=== PATIENT | female | born 1950 | race Caucasian/White ===

== ENCOUNTER → 2016-12-27 | Outpatient (CLI) | payer OTHER ==
[~2016-12-27] MED LIST: AMB10 PO; BNT10 PO; CITRACAL PO; DICL-201 PO; MULT-506 PO; OMEG10007 PO; OXYC-57 PO; PANT40TA PO; PROBIOTIC PO; SERT50TA PO; [UNRECOGNIZED DRUG - OTHER] PO; [UNRECOGNIZED DRUG - OTHER] PO
[2016-12-27 16:25] LABS: MANUAL MICROSCOPIC REQUIRED? YES; URINE APPEARANCE SL CLOUDY (CLEAR); URINE BILIRUBIN NEG (NEG); URINE COLOR YELLOW; URINE NITRITE POS (NEG); URINE PH 5.5 (4.5-7.5); URINE SPECIFIC GRAVITY >= 1.030 (1.000-1.030); UROBILINOGEN NEG (NEG)
[2016-12-27 16:45] LABS: REVIEW REQ? NO
[2016-12-27 16:47] LABS: URINE BACTERIA 1+ (NEG); URINE WBC >30 /hpf (0-5)
== END | disposition home or self-care (01) ==
LOC: C.LABBC 15:15
PROVIDERS: ATTEND Physician Assistant
DX: N39.0 Urinary tract infection, site not specified (principal)

== ENCOUNTER → 2017-03-27 | Outpatient (CLI) | payer OTHER ==
[2017-03-27 17:01] LABS: ALT/SGPT 31 U/L (12-78); BLOOD UREA NITROGEN 19 mg/dl (7-18); BUN/CREATININE RATIO 20.5 (10-20); CALCIUM 9.3 mg/dl (8.5-10.1); CARBON DIOXIDE 24 mmol/L (21-32); CHLORIDE 108 mmol/L (98-107); CHOLESTEROL 189 mg/dl (0-200); CREATININE 0.91 mg/dl (0.60-1.20); GLUCOSE 123 mg/dl (70-99); POTASSIUM 3.9 mmol/L (3.5-5.1); SODIUM 142 mmol/L (136-145)
[2017-03-27 17:11] LABS: ALB/GLOB RATIO 1.2 (0.9-2); ALKALINE PHOSPHATASE 58 U/L (45-117); AST/SGOT 20 U/L (15-37); CHOLESTEROL/HDL RATIO 3.4; HDL CHOLESTEROL 56 mg/dl; LDL CHOLESTEROL CALCULATED 62 mg/dl; TRIGLYCERIDES 354 mg/dl (0-150); VERY LOW DENSITY LIPOPROT CALC 71 mg/dl
== END | disposition home or self-care (01) ==
LOC: C.LABBC 14:13
PROVIDERS: ATTEND Physician Assistant
DX: E78.1 Pure hyperglyceridemia (principal)

== ENCOUNTER → 2017-05-03 | Outpatient (CLI) | payer OTHER ==
[~2017-05-03] MED LIST changes: -DICL-201 PO; +OPTIRAY 320 IV PRN; -OXYC-57 PO; -[UNRECOGNIZED DRUG - OTHER] PO; -[UNRECOGNIZED DRUG - OTHER] PO
[2017-05-03 15:12] LABS: BASO % 0.2 %; BASO ABS # 0.01 K/uL (0-0.2); COMPLETE YES; EOS % 0.6 %; HEMATOCRIT 45.8 % (37-47); IG% 0.3 %; LYMPH ABS # 1.79 K/uL (1.2-3.4); MEAN CELL VOLUME 87.1 fL (80-100); MEAN CORPUSCULAR HGB CONC 34.5 g/dl (32-36); MEAN PLATELET VOLUME 10.5 fL (7.4-10.4); NEUT % 65.9 %; PLATELET COUNT 187 K/uL (130-400); RED BLOOD COUNT 5.26 M/uL (4.2-5.4); WHITE BLOOD COUNT 6.64 K/uL (4.8-10.8)
[2017-05-03 15:44] LABS: ALT/SGPT 28 U/L (12-78); AMYLASE 48 U/L (25-115); AST/SGOT 16 U/L (15-37); BLOOD UREA NITROGEN 18 mg/dl (7-18); BUN/CREATININE RATIO 21.2 (10-20); CALCIUM 9.4 mg/dl (8.5-10.1); CARBON DIOXIDE 27 mmol/L (21-32); CHLORIDE 106 mmol/L (98-107); CREATININE 0.86 mg/dl (0.60-1.20); GLUCOSE 96 mg/dl (70-99); SODIUM 140 mmol/L (136-145)
[2017-05-03 15:50] LABS: ALB/GLOB RATIO 1.2 (0.9-2); ALKALINE PHOSPHATASE 67 U/L (45-117)
--- NOTE | 2017-05-03 18:29 | DIAGNOSTIC IMAGING REPORT ---
ABDOMEN AND PELVIS CT WITH IV AND ORAL CONTRAST CT DOSE: 254.16 mGy.cm HISTORY: Generalized abdominal pain. TECHNIQUE: Multiaxial CT images of the abdomen and pelvis were performed following the use of intravenous and oral contrast. A dose lowering technique was utilized adhering to the principles of ALARA. COMPARISON STUDY: Abdomen and pelvis CT 05/07/2009. FINDINGS: The right lung base is clear. There are 2 subpleural subcentimeter nodular densities within the left lower lobe and lingula with the largest measuring 4 mm. These are likely present on the prior study but are only partially visualized. Given the long-term stability these are considered to be benign. No pneumoperitoneum. No pneumatosis. No fractures within the visualized osseous structures. Cholecystectomy. No hepatic or splenic masses. The pancreas and adrenal glands are unremarkable. Stable mild intrahepatic bile duct dilatation. This is likely due to the patient's postcholecystectomy state. No retroperitoneal lymphadenopathy. 6 mm hypodense lesion within the upper pole the right kidney is too small to characterize. There is a right extrarenal pelvis, unchanged. No hydronephrosis. Stable appearance to the left kidney. Hysterectomy. Questionable mild bladder wall thickening. Colonic diverticulosis. No evidence for diverticulitis. Mild thickening of the sigmoid colon is likely due to muscular hypertrophy. No evidence for bowel obstruction. The appendix appears surgically absent. IMPRESSION: 1. No definite bowel wall thickening or obstruction. 2. Colonic diverticulosis. 3. Prior appendectomy, cholecystectomy, and hysterectomy. 4. Stable mild intrahepatic bile duct dilatation. 5. Questionable mild bladder wall thickening. Recommend correlation with urinalysis. Electronically signed by: Jean-Paul Caba M.D. 05/03/2017 6:27 PM Dictated Date/Time: 05/03/2017 6:20 PM
[2017-05-04 13:43] LABS: URINE APPEARANCE CLEAR (CLEAR); URINE COLOR DK YELLOW; URINE NITRITE NEG (NEG); URINE SPECIFIC GRAVITY 1.036 (1.000-1.030); UROBILINOGEN NEG (NEG)
[2017-05-04 13:51] LABS: MANUAL MICROSCOPIC REQUIRED? NO; REVIEW REQ? NO; URINE BILIRUBIN NEG (NEG)
== END | disposition home or self-care (01) ==
LOC: C.CTS 14:50
PROVIDERS: ATTEND Internal Medicine
DX: R10.9 Unspecified abdominal pain (principal); K57.30 Diverticulosis of large intestine without perforation or abscess without bleeding

== ENCOUNTER → 2017-06-08 | Outpatient (CLI) | payer OTHER ==
[~2017-06-08] MED LIST changes: -OPTIRAY 320 IV PRN
--- NOTE | 2017-06-09 07:42 | MAMMOGRAPHY REPORT ---
BILATERAL DIGITAL SCREENING MAMMOGRAM TOMOSYNTHESIS WITH CAD: 06/08/2017 TECHNIQUE: Breast tomosynthesis in addition to standard 2D mammography was performed. Current study was also evaluated with a Computer Aided Detection (CAD) system. COMPARISON: Comparison is made to exams dated: 05/31/2016 mammogram, 03/31/2015 mammogram, 11/19/2013 ma mmogram, 10/22/2012 mammogram, 10/19/2011 mammogram, and 10/11/2010 mammogram - [facility] er. BREAST COMPOSITION: The tissue of both breasts is heterogeneously dense, which may obscure small mas ses. FINDINGS: There are possible grouped faint calcifications within the left upper outer quadrant poste riorly, for which spot magnification views are recommended for further evaluation. 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 The remainder of both breasts are stable compared to prior exams, without suspicious masses, calcific ations, or areas of architectural distortion noted. 2 clusters of calcifications in the right upper outer quadrant have coarsened compared to prior exams and are therefore benign and likely represent d egenerating fibroadenomas. IMPRESSION: ACR BI-RADS CATEGORY 0: INCOMPLETE EVALUATION: NEED ADDITIONAL IMAGING EVALUATION Left breast calcifications, for which additional imaging evaluation is recommended. The patient will be called to schedule an appointment. Approximately 10% of breast cancers are not detected with mammography. A negative mammographic report should not delay biopsy if a clinically suggestive mass is present. Irina Chambers M.D. ah/:06/08/2017 17:11:30 Vehicle Body Sander: Starla PINO(Zoraida)(M), [facility] letter sent: Addl Imaging 0 BI-RADS Code: ACR BI-RADS Category 0: Incomplete Evaluation: Need Additional Imaging Evaluation
== END | disposition home or self-care (01) ==
LOC: C.MAMM 12:00
PROVIDERS: ATTEND Internal Medicine
DX: Z12.31 Encounter for screening mammogram for malignant neoplasm of breast (principal); R07.81 Pleurodynia; R92.1 Mammographic calcification found on diagnostic imaging of breast

== ENCOUNTER → 2017-06-21 | Outpatient (CLI) | payer OTHER ==
--- NOTE | 2017-06-21 13:17 | MAMMOGRAPHY REPORT ---
UNILATERAL LEFT DIGITAL DIAGNOSTIC MAMMOGRAM: 06/21/2017 CLINICAL HISTORY: Callback from screening for left breast calcifications. TECHNIQUE: Spot magnification left CC and ML views were obtained. COMPARISON: Comparison is made to exams dated: 05/31/2016 mammogram, 03/31/2015 mammogram, 10/19/2011 ma mmogram, and 10/11/2010 mammogram - [facility]. BREAST COMPOSITION: The tissue of the left breast is heterogeneously dense, which may obscure small masses. FINDINGS: Spot magnification views of the left breast demonstrate a 4 mm cluster of punctate but sli ghtly heterogeneous calcifications in the left 12:00 breast middle depth. While this cluster could r epresent a degenerating fibroadenoma as seen in the right breast, it is indeterminate and stereotacti c biopsy is recommended for further evaluation. Spot magnification views also demonstrate faint grouped calcifications in the left upper outer quadra nt posteriorly, which are somewhat linear in distribution. The calcifications are faint and ill-defi yenni and therefore difficult to measure but the group measures at least 16 x 16 mm. The calcification s are indeterminate and stereotactic biopsy is recommended for further evaluation. IMPRESSION: ACR BI-RADS CATEGORY 4: SUSPICIOUS Two groups of calcifications in the left breast at 12:00 and upper outer quadrant are indeterminate a nd stereotactic biopsy x2 is recommended for further evaluation. A phone call was made to the physician's office to confirm faxed results were received. The patient has been verbally notified of the results. She tentatively scheduled the biopsies before leaving the department. Approximately 10% of breast cancers are not detected with mammography. A negative mammographic report should not delay biopsy if a clinically suggestive mass is present. Irina Chambers M.D. ah/:06/21/2017 08:56:51 Plant Technician/Control Room Operator: Margaret KAUR)(Ke), [facility] letter sent: Abnormal 4/5 BI-RADS Code: ACR BI-RADS Category 4: Suspicious
== END | disposition home or self-care (01) ==
LOC: C.MAMM 08:20
PROVIDERS: ATTEND Internal Medicine
DX: R92.1 Mammographic calcification found on diagnostic imaging of breast (principal)

== ENCOUNTER → 2017-06-29 | Outpatient (CLI) | payer OTHER ==
--- NOTE | 2017-06-29 10:21 | Discharge Instructions ---
Discharge Instructions Procedure Procedure Date: Jun 29, 2017. Reason for visit: Left Calcs X2. Discharge Discharge Date: Jun 29, 2017. Discharge Diagnosis: status post breast biopsy Instructions Activity Recommendations: Additional Limitations (see below) Return to School/Work: no limitations Recommended Home Diet: No Limitations Provider Instructions: ACTIVITY RECOMMENDATIONS: * No lifting, pushing, pulling or exercising the affected side for three days. RETURN TO SCHOOL/WORK: * You may return to work/school after the procedure, but do not perform any strenuous activities for 24 to 48 hours. MEDICATIONS: * Tylenol (two 325 mg) every four to six hours if needed for mild pain (if not allergic to Tylenol). DIET: * Resume previous diet. SPECIAL CARE INSTRUCTIONS: * Keep biopsy site dry for 24 hours. May shower after 24 hours, but do not soak (bathe) incision. * May remove Tegaderm (plastic patch) tomorrow AFTER showering. * Leave the steri-strips on for one week. Allow the steri-strips to fall off by themselves. If not off after one week, you may remove them. You may place a Bandaid crosswise over the strips, if desired. * Apply ice 10 minutes on and 10 minutes off as needed. * Wear a bra at bedtime to sleep more comfortably for 2-3 days. * Your referring physician should have the results after approximately 5 to 7 business days. * Call for unusual bleeding, fever, drainage, etc or if you have any questions call during normal business hours or after hours call Dr Chambers, . FOLLOW UP VISIT: Follow-up with Referring Physician as scheduled. Allergies Coded Allergies: Diazepam (Verified Allergy, Severe, LOW B/P; "IV VALIUM CAUSED ANAPHYLACTIC SHOCK", 05/14/10) Clary Dowd Recommendations: Call your doctor if: * Temperature above 101 degrees * Pain not relieved by pain medicine ordered * There is increased drainage or redness from any incision * You have any unanswered questions or concerns. Your Doctors Instructions noted above were prepared by provider Irina Chambers. Patient Signature Section: Patient Instructions Signature Page Avril Macario Patient (or Guardian) Signature/Date: I have read and understand the instructions given to me by my caregivers. Caregiver/RN/Doctor Signature/Date: The above-named patient and/or guardian has received patient instructions on this date. + Original Patient Signature Page (only) stays with chart. Please make copy for patient.
--- NOTE | 2017-06-29 13:55 | MAMMOGRAPHY REPORT ---
STEREOTACTIC GUIDED BIOPSY LEFT BREAST: 06/29/2017 CLINICAL HISTORY: Indeterminate calcifications in the left 12:00 breast. PATIENT CONSENT: The procedure, risks, benefits, and alternatives of stereotactic biopsy with clip pl acement were discussed with the patient, and verbal and written consent was obtained. A timeout was performed immediately prior to the procedure. PROCEDURE DESCRIPTION: With stereotactic guidance, aseptic technique, and lidocaine as a local anesth etic (1% lidocaine to anesthetize the skin and 1% lidocaine with epinephrine to anesthetize the deepe r tissues), the calcifications of concern in the left 12:00 breast (labelled site "B") were sampled m ultiple times with a 9-gauge vacuum-assisted biopsy needle ([employer]). The path of approach was l ateral. The specimen radiograph demonstrates calcifications to be present in the samples. A metalli c marker clip was placed at the biopsy site. This was confirmed on postprocedure mammograms. Direct pressure was applied at the biopsy site and hemostasis was readily achieved. The patient tolerated the procedure without complication. She was given wound care instructions. COMPARISON: Comparison is made to exams dated: 06/29/2017 stereotactic biopsy, 06/21/2017 mammogram, 06/08/2017 mammogram, 05/31/2016 mammogram, 03/31/2015 mammogram, and 11/19/2013 mammogram - [facility]. IMPRESSION: STEREOTACTIC GUIDED BIOPSY Stereotactic biopsy of indeterminate calcifications in the left 12:00 breast, with clip placement. T he patient will receive pathology results from her referring provider. Irina Chambers M.D. ah/:06/29/2017 10:24:09 Biofuels Plant Manager: Starla PINO(Zoraida)(M), [facility]
--- NOTE | 2017-06-29 13:55 | MAMMOGRAPHY REPORT ---
UNILATERAL LEFT DIGITAL DIAGNOSTIC MAMMOGRAM: 06/29/2017 CLINICAL HISTORY: Status post left breast stereotactic biopsy 2. TECHNIQUE: Postprocedural left CC and LM views were obtained. COMPARISON: Comparison is made to exams dated: 06/29/2017 stereotactic biopsy, 06/21/2017 mammogram, 06/08/2017 mammogram, 05/31/2016 mammogram, 03/31/2015 mammogram, and 11/19/2013 mammogram - [facility]. BREAST COMPOSITION: The tissue of the left breast is heterogeneously dense, which may obscure small masses. FINDINGS: A new T-shaped biopsy marker clip is seen in the left upper outer quadrant status post fiorella reotactic biopsy of left upper outer quadrant calcifications. There is minimal lateral migration of the biopsy marker clip from the biopsy site by approximately 1.7 cm. A dumbbell shaped biopsy marker clip is seen at the site of the biopsied calcifications in the left 12:00 breast. No significant po stbiopsy hematoma is seen. IMPRESSION: POST PROCEDURE IMAGING FOR MARKER PLACEMENT New biopsy marker clips status post left breast stereotactic biopsies 2. Pathology results are pend ing. Approximately 10% of breast cancers are not detected with mammography. A negative mammographic report should not delay biopsy if a clinically suggestive mass is present. Irina Chambers M.D. ah/:06/29/2017 10:46:21 Shot Lighter: Starla PINO(Zoraida)(M), [facility] BI-RADS Code: Post Procedure Imaging For Marker Placement
--- NOTE | 2017-06-29 13:55 | MAMMOGRAPHY REPORT ---
STEREOTACTIC GUIDED BIOPSY LEFT BREAST: 06/29/2017 CLINICAL HISTORY: Indeterminate calcifications in the left upper outer quadrant. PATIENT CONSENT: The procedure, risks, benefits, and alternatives of stereotactic biopsy with clip pl acement were discussed with the patient, and verbal and written consent was obtained. A timeout was performed immediately prior to the procedure. PROCEDURE DESCRIPTION: With stereotactic guidance, aseptic technique, and lidocaine as a local anesth etic (1% lidocaine to anesthetize the skin and 1% lidocaine with epinephrine to anesthetize the deepe r tissues), the calcifications of concern in the left upper outer quadrant posteriorly (labeled site "A") were sampled multiple times with a 9-gauge vacuum-assisted biopsy needle ([employer]). The pat h of approach was lateral. The specimen radiograph demonstrates calcifications to be present in the samples. A metallic marker clip was placed at the biopsy site. This was confirmed on postprocedure mammograms. Direct pressure was applied at the biopsy site and hemostasis was readily achieved. The patient tolerated the procedure without complication. She was given wound care instructions. COMPARISON: Comparison is made to exams dated: 06/21/2017 mammogram, 06/08/2017 mammogram, 05/31/2016 m ammogram, and 03/31/2015 mammogram - [facility]. IMPRESSION: STEREOTACTIC GUIDED BIOPSY Stereotactic biopsy of indeterminate calcifications in the left upper outer quadrant, with clip place ment. The patient will receive pathology results from her referring provider. Irina Chambers M.D. ah/:06/29/2017 10:23:04 Network Operations Manager: Starla PINO(Zoraida)(Ke), [facility]
== END | disposition home or self-care (01) ==
LOC: C.MAMM 09:21
PROVIDERS: ATTEND Internal Medicine
DX: R93.0 Abnormal findings on diagnostic imaging of skull and head, not elsewhere classified (principal); D24.2 Benign neoplasm of left breast

== ENCOUNTER → 2017-12-27 | Outpatient (CLI) | payer OTHER | END | disposition home or self-care (01) | LOC: C.PATHSPEC 16:33 | PROVIDERS: ATTEND Physician Assistant | DX: L82.0 Inflamed seborrheic keratosis (principal) ==

== ENCOUNTER 2020-03-28 10:34 | Inpatient (IN) ==
[2020-03-28] MEDS ORDERED: MoRPHine SULFATE 4 MG/ML 1 ML CARP\\VIAL IV STA ×2 (11:23→12:08)
[2020-03-28] MEDS ORDERED: ONDANSETRON INJ 2 MG/ML 2 ML VIAL IV STA (11:23)
[2020-03-28] MEDS ORDERED: SODIUM CHLORIDE 0.9% 1000ML 1,000 ML IV SCH ×2 (11:24→11:30)
--- NOTE | 2020-03-28 11:34 | Emergency Department Note ---
History of Present Illness General Chief complaint: Abdominal Pain Stated complaint: DIVERTICULITIS CONFIRMED LAST WEEK - SWOLLEN Time Seen by Provider: 03/28/20 11:05 History of Present Illness Maximum Pain Intensity: 8 Patient is a 70-year-old female who presents the emergency department accompanied by her for evaluation of abdominal pain and bloating that started yesterday. She was seen at her primary care provider's office on 03/19 for abdominal pain and had a CT scan that was consistent with diverticulitis. She was treated with Augmentin. She reports that she is on the last day of the Augmentin. She started to feel better after being on the antibiotic for 2 days, and felt well this week until yesterday, when she woke up and again noted malaise and lower abdominal discomfort and bloating. Her symptoms worsened as the day went on. She tried holding a heating pad to the abdomen, but did not try anything for discomfort by mouth. She has been following a clear liquid diet. She had a normal bowel movement yesterday afternoon, then had some small loose bowel movements throughout the day without blood or melena. She does note increased nausea as well without vomiting. No fevers. She denies any urinary symptoms but has noted some vaginal itching and suspects that she may be developing a yeast infection secondary to the Augmentin. She does also have a history of IBS. She had a colonoscopy about 18 months ago which showed diverticular disease. She currently rates her discomfort a 8/10, she states that it is located in the left lower quadrant and radiates to the suprapubic region. It is sharp and constant in nature and worse with movement. Home Medications Home Medications Medication Instructions Recorded Confirmed Type Saccharomyces boulardii 250 mg 250 mg PO QAM cap 03/14/19 03/28/20 History capsule zolpidem 5 mg tablet 5 mg PO HS PRN #30 tab 03/05/20 03/28/20 Rx amoxicillin 875 mg-potassium 1 tab PO BID #20 tab 03/19/20 03/28/20 Rx clavulanate 125 mg tablet pantoprazole 40 mg PO QAM 03/28/20 03/28/20 History sertraline 100 mg PO QAM 03/28/20 03/28/20 History Allergies Allergy/AdvReac Type Severity Reaction Status Date / Time diazepam Allergy Severe LOW B/P; Verified 03/28/20 12:01 "IV VALIUM CAUSED ANAPHYLACTIC SHOCK" alendronate sodium AdvReac Verified 03/28/20 12:01 [From Fosamax] azithromycin [From Zithromax] AdvReac DIARRHEA Verified 03/28/20 12:01 Past Med/Surg History Medical History Abdominal pain (Resolved) Abnormal mammography s/p lumpectomy, s/p stereotactic biopsy 06/29/2017. Left Upper outer quadrant - Fibroadenomatoid change with associated microcalcification. Left 12 o'clock bx - Fibroadenomatoid change with associated microcalcification. Age related osteoporosis Anorexia Chronic reflux esophagitis (Chronic) Current smoker Depression (Chronic) Diverticulosis of colon Elevated blood pressure reading with diagnosis of hypertension Elevated blood pressure reading without diagnosis of hypertension Herpes simplex Hypertriglyceridemia Irritable bowel syndrome (Chronic) Mineral deficiency Nausea Neck pain Osteoarthritis (Chronic) Osteoporosis (Chronic) Osteoporosis with fracture Postmenopausal osteoporosis Rhinorrhea Solitary pulmonary nodule Symptoms of upper respiratory infection (URI) Tobacco use (Chronic) Vitamin D deficiency (Chronic) Weight loss Surgical History H/O: hysterectomy History of appendectomy (Resolved) History of cholecystectomy (Resolved 11/20/18) History of colonoscopy Tubular adenoma in cecum. Hyperplastic polyp in rectum. F/U 5 years. History of esophagogastroduodenoscopy (EGD) (Resolved 11/20/18) No significant path on duodenal bx. Gastric antral mucosa with changes consistent with mild reactive grastropathy. Negative for H. pylori. History of lumpectomy (Resolved) History of partial nephrectomy (Resolved) No pathology reports in [employer]. History of tonsillectomy and adenoidectomy (Resolved) Family History (Updated 03/26/20 @ 10:43 by Lissa Sena) Mother Arthritis Breast cancer Father Heart disease Hypertension Parkinson disease Uncle Colon cancer Grandfather Colon cancer Grandmother Ovarian cancer Brother Diabetes Denies family history of Prostate cancer Myocardial infarction Lung cancer Stroke Social History Preferred Language: Turkish marital status: Current Living Situation: Spouse current occupational status: retired Feels Safe at Home: Yes Smoking Status: Current every day smoker Tobacco Type: cigarettes ; packs per day: 0.25 ; Second Hand Exposure: No ; Hx Alcohol Use: Yes Alcohol type: wine Alcohol Intake Frequency: Weekly Alcohol Intake Frequency Comment: 4 times per week Hx Substance Use: Yes (zolpidem) substance use type: prescription drug Childhood Exposure to Second-Hand Smoke: No caffeine: Yes Dental Care, Regularly: Yes Physical Activity Frequency: 3-4 Times per Week Seatbelt Use: always Sunscreen Use: No Review of Systems A total of 10 systems reviewed and were otherwise negative Physical Exam Vital Signs Vital Signs - 24 hr 03/28/20 10:42 03/28/20 11:42 03/28/20 11:52 Temperature 37.2 C Temperature Source Oral Pulse Rate 80 69 70 Pulse Rate [Right Finger] Respiratory Rate 18 15 12 Respiratory Effort / Characteristics Non-Labored Respiratory Depth Normal Respiratory Pattern Regular Blood Pressure 169/90 H 175/81 H Blood Pressure [Left Arm] Blood Pressure Mean 116 97 Blood Pressure Mean [Left Arm] Blood Pressure Position Sitting Pulse Oximetry 96 93 94 Oxygen Delivery Method Room Air Sepsis Recent Fever Within 48 Hours No Sepsis Action Taken by Nursing No Action Required 03/28/20 12:00 03/28/20 12:38 03/28/20 13:08 Temperature Temperature Source Pulse Rate 67 Pulse Rate [Right Finger] 88 89 Respiratory Rate 12 19 19 Respiratory Effort / Characteristics Respiratory Depth Respiratory Pattern Blood Pressure Blood Pressure [Left Arm] 190/100 H 180/94 H Blood Pressure Mean Blood Pressure Mean [Left Arm] 130 122 Blood Pressure Position Pulse Oximetry 95 95 93 Oxygen Delivery Method Sepsis Recent Fever Within 48 Hours Sepsis Action Taken by Nursing CONSTITUTIONAL: Patient is a well-appearing 70-year-old female who is awake and alert and in no acute distress. She is nontoxic in appearance. Vital signs are stable. EYES: Pupils equal, round, reactive to light and accommodation. EOMs intact without nystagmus. Sclera are anicteric. ENT: Tympanic membranes intact, with normal landmarks. External canals are clear. Oral and nasopharynx are clear. Mucous membranes are moist, no lesions, tongue and gums appear normal. CARDIOVASCULAR: Regular rate and rhythm, with normal S1 and S2, no murmur or gallop or rub is heard. No carotid bruits auscultated. No JVD. Peripheral pulses easily palpable. RESPIRATORY: Breath sounds equal and clear to auscultation without wheezes, rales, or rhonchi heard. Full and equal chest expansion without accessory muscle use or retractions. ABDOMEN: Bowel sounds are present, slightly hyperactive in the lower quadrants. Abdomen is soft, mildly distended, tender to percussion in the lower abdomen in the suprapubic region and in the left lower quadrant. She is tender to palpation of the left lower quadrant, with voluntary guarding. INTEGUMENTARY: No lesions or rash, normal skin turgor. LYMPH: No lymphadenopathy. Course Course The patient was seen and assessed as above. Old records were reviewed, including her recent primary care visits and her outpatient CT scan. She presents to the emergency department for evaluation of return of the left lower quadrant pain that prompted her to go to the primary care provider 10 days ago when she was diagnosed with diverticulitis. She is due to finish her Augmentin today. On exam she is fairly tender in the left lower quadrant. IV lock was initiated and laboratory studies were collected. She was hydrated with a liter bolus of normal saline solution and medicated with Zofran 4 mg IV and morphine 4 mg IV. CBC with differential, CMP and urinalysis were ordered. CT scan of the abdomen and pelvis with IV contrast was obtained to evaluate for any changes. Patient was reassessed, roughly 45 minutes after she had received her medications, she was feeling improved, but still had some ongoing discomfort and was agreeable to additional medication for pain. She was given additional morphine 4 mg IV. Laboratory studies noted a normal white count 9700 left shift and bandemia noted. H&H is high 17.3 and 49.2, possibly related to hemoconcentration. Electrolytes are within normal limits. Renal functions are normal. Urine microscopy is indicative of contamination with greater than 30 epithelial cells. Otherwise trace ketones, trace leukocyte esterase scant RBCs and no bacteria noted. Patient was still uncomfortable when she returned from CT and was given morphine [address] scan of the abdomen pelvis with IV contrast notes diverticulitis involving the mid sigmoid colon have significantly improved compared to 03/19/2020, however there is wall thickening with pericolonic infiltration and fluid seen involving the distal descending and proximal sigmoid colon which is new from previous and consistent with a second focus of diverticulitis. No organized fluid collection is seen to indicate abscess. No bowel obstruction. No free air. Patient history, presentation, laboratory studies and diagnostic imaging studies were reviewed with attending physician who also independently evaluated the patient. Discussed IV antibiotic regimen with Dr. Vanessa Aquino, ED PharmD. Patient has a failed outpatient management on Augmentin. [facility] that secondary to the patient's age and comorbidities, Cipro/Flagyl would be poorly tolerated. Recommendation then was for IV ceftriaxone/IV Flagyl, could be transitioned to p.o. cefdinir and Flagyl at discharge. Patient was ordered Flagyl 500 mg IV and ceftriaxone 2 g IV. All laboratory and diagnostic imaging studies were reviewed with the patient and her significant other. Did recommend admission/observation for further care and management in the hospital due to her ongoing pain, as well as benefits secondary to the IV antibiotics and hydration. She was agreeable. Consultation was placed with the [facility] for further care and management. Patient was seen by Dr. Vazquez. Administered Medications Sodium Chloride (Nss 1000ml) 1,000 mls @ 250 mls/hr IV .Q4H JOYCE Stop: 04/27/20 11:29 Last Admin: 03/28/20 12:34 Dose: 250 mls/hr Documented by: [id number] Ioversol (Optiray 320 100ml) 94 ml IV ONCE PRN PRN Reason: Interaction Checking Stop: 04/01/20 12:26 Last Admin: 03/28/20 12:28 Dose: 94 ml Documented by: [id number] Discontinued Medications Sodium Chloride (Nss 1000ml) 1,000 mls @ 999 mls/hr IV .Q1H1M JOYCE Stop: 03/28/20 12:24 Last Infusion: 03/28/20 12:34 Dose: 0 mls/hr Documented by: [id number] Admin: 03/28/20 11:37 Dose: 999 mls/hr Documented by: [id number] Ceftriaxone Sodium (Rocephin) 2,000 mg in 70 mls @ 140 mls/hr IV NOW STA Stop: 03/28/20 13:45 Last Infusion: 03/28/20 13:54 Dose: 0 mls/hr Documented by: [id number] Admin: 03/28/20 13:28 Dose: 140 mls/hr Documented by: [id number] Morphine Sulfate (Morphine Sulfate) 4 mg IV NOW STA Stop: 03/28/20 11:24 Last Admin: 03/28/20 11:37 Dose: 4 mg Documented by: [id number] Morphine Sulfate (Morphine Sulfate) 4 mg IV NOW STA Stop: 03/28/20 12:09 Last Admin: 03/28/20 12:13 Dose: 4 mg Documented by: [id number] Morphine Sulfate (Morphine Sulfate) 6 mg IV NOW STA Stop: 03/28/20 12:46 Last Admin: 03/28/20 12:50 Dose: 6 mg Documented by: [id number] Ondansetron HCl (Zofran) 4 mg IV NOW STA Stop: 03/28/20 11:24 Last Admin: 03/28/20 11:37 Dose: 4 mg Documented by: [id number] Medical Decision Making Differential Diagnosis Differential diagnoses entertained included UTI, pyelonephritis, acute diverti culitis, bowel obstruction, perforation, abscess, mass or malignancy, infectious versus inflammatory colitis/enteritis, constipation, among others. Medical Records Attestation: I reviewed the patient's medical records. Home Medications Current Medication List: was personally reviewed by me Laboratory Data Attestation: I reviewed the patient's lab results. Result diagrams: 03/28/20 11:40 03/28/20 11:40 Lab Results 03/28/20 03/28/20 03/28/20 Range/Units 11:40 11:40 11:40 WBC 9.71 (4.8-10.8) K/uL RBC 5.65 H (4.2-5.4) M/uL Hgb 17.3 H (12.0-16.0) g/dL Hct 49.2 H (37-47) % MCV 87.1 (80-100) fL MCH 30.6 (25-34) pg MCHC 35.2 (32-36) g/dL RDW Std Deviation 39.1 (36.4-46.3) fL RDW Coeff of Umm 12.2 (11.5-14.5) % Plt Count 177 (130-400) K/uL MPV 10.9 H (7.4-10.4) fL Immature Gran % (Auto) 0.4 % Neut % (Auto) 80.8 % Lymph % (Auto) 13.5 % [place] % (Auto) 4.9 % Eos % (Auto) 0.3 % Baso % (Auto) 0.1 % Neut # (Auto) 7.84 H (1.4-6.5) K/uL Lymph # (Auto) 1.31 (1.2-3.4) K/uL [place] # (Auto) 0.48 (0.11-0.59) K/uL Eos # (Auto) 0.03 (0-0.5) K/uL Baso # (Auto) 0.01 (0-0.2) K/uL Immature Gran # (Auto) 0.04 H (0.00-0.02) K/uL Sodium 138 (136-145) mmol/L Potassium 4.2 (3.5-5.1) mmol/L Chloride 108 H (98-107) mmol/L Carbon Dioxide 26 (21-32) mmol/L Anion Gap 4.0 (3-11) BUN 15 (7-18) mg/dl Creatinine 0.78 (0.6-1.2) mg/dl Est Cr Clr Drug Dosing 54.7 ml/min Est GFR ( Amer) 88.6 Est GFR (Non-Af Amer) 76.5 BUN/Creatinine Ratio 19.4 (10-20) Glucose 105 H (70-99) mg/dl Calcium 9.5 (8.5-10.1) mg/dl Total Bilirubin 0.8 (0.2-1) mg/dl AST 20 (15-37) U/L ALT 28 (12-78) U/L Alkaline Phosphatase 83 (45-117) U/L Total Protein 7.7 (6.4-8.2) gm/dl Albumin 4.1 (3.4-5.0) gm/dl Globulin 3.6 (2.5-4.0) gm/dl Albumin/Globulin Ratio 1.1 (0.9-2) Urine Color Dark Yellow Urine Appearance Clear (Clear) Urine pH 5.0 (4.5-7.5) Ur Specific [place] 1.025 (1.000-1.030) Urine Protein Trace H (Negative) Urine Glucose (UA) Negative (Negative) Urine Ketones Trace H (Negative) Urine Blood Negative (Negative) Urine Nitrite Negative (Negative) Urine Bilirubin Negative (Negative) Urine Urobilinogen Negative (Negative) Ur Leukocyte Esterase Trace H (Negative) Urine WBC (Auto) 1-5 (0-5) /hpf Urine RBC (Auto) 5-10 H (0-4) /hpf U Hyaline Cast (Auto) 5-10 H (0-5) /lpf U Epithel Cells (Auto) >30 H (0-5) /lpf Urine Bacteria (Auto) Negative (Negative) Imaging Data Attestation: I personally reviewed and interpreted this imaging study as follows: Radiologist's Impression: CT SCAN OF THE ABDOMEN AND PELVIS WITH IV CONTRAST CLINICAL HISTORY: Generalized abdominal pain. Diverticulitis. COMPARISON STUDY: Abdominal CT dated 03/19/2020. TECHNIQUE: Following the IV administration of 94 cc of Optiray 320, CT scan of the abdomen and pelvis is performed from the lung bases to the proximal femora. Images are reviewed in the axial, sagittal, and coronal planes. IV contrast was administered without complication. A dose lowering technique was utilized adhering to the principles of ALARA. CT DOSE: 275.06 mGy.cm FINDINGS: Lung bases: The heart is normal in size and without pericardial effusion. 2 pl eural-based pulmonary nodules at the left lung base measuring up to 4 mm seen on images #52 and #59. A 5 mm pleural-based nodule in the left lower lobe is seen on image #5. These are unchanged from prior studies and of doubtful significance. The lung bases are otherwise clear. Liver: The contrast-enhanced liver is normal in size, contour, and attenuation. There is mild to moderate intrahepatic biliary ductal dilatation. The hepatic veins and portal veins are patent. Gallbladder: Surgically absent noting clips in the gallbladder fossa. Spleen: Normal in size and attenuation. Pancreas: Unremarkable. Adrenal glands: Unremarkable. Kidneys: The contrast enhanced kidneys are normal in size and without hydronephrosis. The kidneys enhance symmetrically. Scattered subcentimeter cortical hypodensities likely represent cysts but are too small for definitive characterization. Abdominal vasculature: The abdominal aorta is normal in course and caliber noting mild atherosclerotic calcification. Bowel: There is mild to moderate colonic diverticulosis. Findings of diverticulitis involving the mid sigmoid colon have significantly improved as compared to 03/19/2020. There is wall thickening with pericolonic infiltration and fluid seen involving the distal descending/proximal sigmoid colon which is new from previous and consistent with a second focus of diverticulitis. No organized fluid collection is seen to indicate abscess. No bowel obstruction is seen. The appendix is not identified and reported surgically absent. Peritoneum: There is no intraperitoneal free air or abdominal ascites. Lymphadenopathy: None. Pelvic viscera: The bladder is normal as visualized. The uterus is surgically absent. No adnexal lesion is seen. Numerous phleboliths are noted in the pelvis. Skeletal structures: The skeletal structures are osteopenic. Mild lumbosacral spondylosis is observed. No lytic or blastic lesions are seen. IMPRESSION: 1. There is moderate colonic diverticulosis. 2. Findings of acute diverticulitis involving the mid sigmoid colon seen on 03/19/2020 have almost completely resolved. 3. Findings of acute diverticulitis involving the distal descending/proximal sigmoid colon are new from 03/19/2020. 4. No intraperitoneal free air is seen and there is no organized fluid colle ction to suggest abscess. 5. Additional findings as above. Blood Pressure Blood Pressure Findings: Elevated blood pressure Blood Pressure Disposition: further management by hospitalist MDM Narrative See ED Course. Impression & Plan Acute diverticulitis Discharge Plan Visit Data Chief Complaint: Abdominal Pain Stated Complaint: DIVERTICULITIS CONFIRMED LAST WEEK - SWOLLEN ED Provider: Parth Bah ED Midlevel Provider: Jasmin Oviedo Discharge Problem: Acute diverticulitis Patient Disposition: Admitted As Inpatient Forms Stand Alone Forms: [facility] Prescriptions Prescriptions: No Action zolpidem 5 mg tablet 5 mg PO HS PRN (Reason: Sleep) Qty: 30 RF: 0 Saccharomyces boulardii 250 mg capsule 250 mg PO QAM RF: 0 amoxicillin-pot clavulanate [Augmentin] 875-125 mg tablet 1 tab PO BID Qty: 20 RF: 0 sertraline 100 mg tablet 100 mg PO QAM RF: 0 pantoprazole 40 mg tablet,delayed release (DR/EC) 40 mg PO QAM RF: 0 Referrals Referrals: Zach Thomas MD [Primary Care Provider] -
[2020-03-28 11:52] LABS: Basophils # (auto) 0.01 K/uL (0-0.2); Basophils % (auto) 0.1 %; Eosinophils # (auto) 0.03 K/uL (0-0.5); Eosinophils % (auto) 0.3 %; Hematocrit (blood only) 49.2 % (37-47); Hemoglobin 17.3 g/dL (12.0-16.0); Immature Granulocytes # (auto) 0.04 K/uL (0.00-0.02); Immature Granulocytes % (auto) 0.4 %; Lymphocytes # (auto) 1.31 K/uL (1.2-3.4); Lymphocytes % (auto) 13.5 %; Mean Corpuscular Hemoglobin 30.6 pg (25-34); Mean Corpuscular Hgb Conc 35.2 g/dL (32-36); Mean Corpuscular Volume 87.1 fL (80-100); Mean Platelet Volume 10.9 fL (7.4-10.4); Monocytes # (auto) 0.48 K/uL (0.11-0.59); Monocytes % (auto) 4.9 %; Neutrophils # (auto) 7.84 K/uL (1.4-6.5); Neutrophils % (auto) 80.8 %; Platelet Count 177 K/uL (130-400); RDW Coefficient of Variation 12.2 % (11.5-14.5); RDW Standard Deviation 39.1 fL (36.4-46.3); Red Blood Count 5.65 M/uL (4.2-5.4); White Blood Count 9.71 K/uL (4.8-10.8)
[2020-03-28 11:55] LABS: Appearance Urine Clear (Clear); Bacteria Urine Automated Negative (Negative); Bilirubin Urine Negative (Negative); Blood Urine Negative (Negative); Color Urine Dark Yellow; Epithelial Cell Urine Auto >30 /lpf (0-5); Glucose Urine UA Negative (Negative); Ketones Urine Trace (Negative); Leukocyte Esterase Urine Trace (Negative); Nitrite Urine Negative (Negative); Protein Urine Trace (Negative); Specific Gravity Urine 1.025 (1.000-1.030); Urobilinogen Urine Negative (Negative)
[2020-03-28 12:09] LABS: Albumin Level 4.1 gm/dl (3.4-5.0); BUN Creatinine Ratio 19.4 (10-20); Calcium 9.5 mg/dl (8.5-10.1); Creatinine Clr Calc Pharmacy 54.7 ml/min; Est GFR (African American) 88.6; Est GFR (Non-African American) 76.5; Potassium 4.2 mmol/L (3.5-5.1)
[2020-03-28 12:12] LABS: Albumin Globulin Ratio 1.1 (0.9-2); Bilirubin,Total 0.8 mg/dl (0.2-1); Globulin 3.6 gm/dl (2.5-4.0); Total Protein 7.7 gm/dl (6.4-8.2)
[2020-03-28] MEDS ORDERED: IOVERSOL 100ml IV PRN (12:27)
--- NOTE | 2020-03-28 12:41 | CT Scan Report ---
CT SCAN OF THE ABDOMEN AND PELVIS WITH IV CONTRAST CLINICAL HISTORY: Generalized abdominal pain. Diverticulitis. COMPARISON STUDY: Abdominal CT dated 03/19/2020. TECHNIQUE: Following the IV administration of 94 cc of Optiray 320, CT scan of the abdomen and pelvi s is performed from the lung bases to the proximal femora. Images are reviewed in the axial, sagittal , and coronal planes. IV contrast was administered without complication. A dose lowering technique wa s utilized adhering to the principles of ALARA. CT DOSE: 275.06 mGy.cm FINDINGS: Lung bases: The heart is normal in size and without pericardial effusion. 2 pleural-based pulmonary n odules at the left lung base measuring up to 4 mm seen on images #52 and #59. A 5 mm pleural-based no dule in the left lower lobe is seen on image #5. These are unchanged from prior studies and of doubtf ul significance. The lung bases are otherwise clear. Liver: The contrast-enhanced liver is normal in size, contour, and attenuation. There is mild to mode rate intrahepatic biliary ductal dilatation. The hepatic veins and portal veins are patent. Gallbladder: Surgically absent noting clips in the gallbladder fossa. Spleen: Normal in size and attenuation. Pancreas: Unremarkable. Adrenal glands: Unremarkable. Kidneys: The contrast enhanced kidneys are normal in size and without hydronephrosis. The kidneys enh ance symmetrically. Scattered subcentimeter cortical hypodensities likely represent cysts but are too small for definitive characterization. Abdominal vasculature: The abdominal aorta is normal in course and caliber noting mild atheroscleroti c calcification. Bowel: There is mild to moderate colonic diverticulosis. Findings of diverticulitis involving the mid sigmoid colon have significantly improved as compared to 03/19/2020. There is wall thickening with per icolonic infiltration and fluid seen involving the distal descending/proximal sigmoid colon which is new from previous and consistent with a second focus of diverticulitis. No organized fluid collection is seen to indicate abscess. No bowel obstruction is seen. The appendix is not identified and repor lise surgically absent. Peritoneum: There is no intraperitoneal free air or abdominal ascites. Lymphadenopathy: None. Pelvic viscera: The bladder is normal as visualized. The uterus is surgically absent. No adnexal lesi on is seen. Numerous phleboliths are noted in the pelvis. Skeletal structures: The skeletal structures are osteopenic. Mild lumbosacral spondylosis is observed . No lytic or blastic lesions are seen. IMPRESSION: 1. There is moderate colonic diverticulosis. 2. Findings of acute diverticulitis involving the mid sigmoid colon seen on 03/19/2020 have almost comp letely resolved. 3. Findings of acute diverticulitis involving the distal descending/proximal sigmoid colon are new fr om 03/19/2020. 4. No intraperitoneal free air is seen and there is no organized fluid collection to suggest abscess. 5. Additional findings as above. ACT 112: Negative or not required by law. Electronically signed by: Tawanda Weldon M.D. 03/28/2020 12:40 PM
[2020-03-28] MEDS ORDERED: MoRPHine SULFATE 10 MG/ML CARP/VIAL IV STA (12:45)
[2020-03-28] MEDS ORDERED: metroNIDAZOLE 500 MG/100 ML BAG IV STA (13:13)
[2020-03-28] MEDS ORDERED: cefTRIAXone SODIUM 2,000 MG/70 ML BAG IV STA (13:16)
--- NOTE | 2020-03-28 13:20 | Emergency Department Note ---
General (ED) Blank Date of Service March 28, 2020 I have personally evaluated this patient examined her and reviewed the pertinent labs and data. I have discussed the case with Sulema Oviedo, the physician teaching assistant and agree with the plan. Please refer to the PA note This patient is being treated for diverticulitis since March 20 with Augmentin. She comes in today on her last day of antibiotics and has significant abdominal pain. She is very tender on my exam in the left lower abdomen but has no definite peritonitis. CAT scan was obtained which shows no abscess or bowel obstruction she does have diverticulitis that looks better in some places and also it has been worse in other places. She has received multiple doses IV morp sherri. She has no white count here and she has no acute electrolyte or metabolic abnormalities. I did talk to the patient and her at length. We are going to keep her for IV antibiotics, pain management, and further treatment and evaluation of consult of the hospitalist to see her. Her primary doctor is Dr. Zach Thomas.
--- NOTE | 2020-03-28 14:06 | History & Physical Report ---
Date of Service March 28, 2020 Assessment & Plan (1) Acute diverticulitis: Acute diverticulitis- CT scan today reveals an almost completely resolved mid sigmoid diverticulitis. CT today does reveal a new area of distal descending and proximal sigmoid diverticulitis Failure of outpatient treatment with Augmentin. Continue ceftriaxone 2 g IV daily and Flagyl 500 mg IV every 8 hours begun in the ED NPO except sips. Zofran 4 mg IV every 6 hours as needed Acetaminophen 650 mg p.o. every 6 hours PRN mild pain or temperature Morphine sulfate 2 mg IV every 3 hours as needed severe pain Present on Admission?: Yes (2) Chronic reflux esophagitis: Hold oral pantoprazole. Famotidine 20 mg IV every 12 hours Present on Admission?: Yes (3) Depression: Hold sertraline 100 mg every morning and zolpidem 5 mg at bedtime as needed Present on Admission?: Yes History of Present Illness Chief Complaint: The patient presents to the emergency department with complaint of fever and worsening abdominal pain as she is completing a a prescription of Augmentin for treatment of outpatient diverticulitis. Primary Care Provider: Zach Thomas MD The patient is a 70-year-old female with a past medical history including anorexia, sigmoid diverticulosis, solitary pulmonary nodule, chronic reflux esophagitis, depression, hypertriglyceridemia, irritable bowel syndrome, insomnia and vitamin D deficiency. She was initially diagnosed with sigmoid diverticulitis on 03/19/2020, and was started on Augmentin at that time. She reports that she initially been improving, however, over the past few days her symptoms have worsened, and she now has developed a temperature and worsening left lower quadrant abdominal pain. She has been adhering to a full liquid diet, but last night did have a potato with skins. She did have a colonoscopy performed approximately 18 months ago, which did show diverticulosis. Allergies Allergy/AdvReac Type Severity Reaction Status Date / Time diazepam Allergy Severe LOW B/P; Verified 03/28/20 12:01 "IV VALIUM CAUSED ANAPHYLACTIC SHOCK" alendronate sodium AdvReac Verified 03/28/20 12:01 [From Fosamax] azithromycin [From Zithromax] AdvReac DIARRHEA Verified 03/28/20 12:01 Home Medications Home Medications Medication Instructions Recorded Confirmed Type Saccharomyces boulardii 250 mg 250 mg PO QAM cap 06/27/19 07/11/20 History capsule zolpidem 5 mg tablet 5 mg PO HS PRN #30 tab 03/05/20 03/28/20 Rx amoxicillin 875 mg-potassium 1 tab PO BID #20 tab 03/19/20 03/28/20 Rx clavulanate 125 mg tablet pantoprazole 40 mg PO QAM 03/28/20 03/28/20 History sertraline 100 mg PO QAM 03/28/20 03/28/20 History Past Med/Surg History Medical History Abdominal pain (Resolved) Abnormal mammography s/p lumpectomy, s/p stereotactic biopsy 06/29/2017. Left Upper outer quadrant - Fibroadenomatoid change with associated microcalcification. Left 12 o'clock bx - Fibroadenomatoid change with associated microcalcification. Age related osteoporosis Anorexia Chronic reflux esophagitis (Chronic) Current smoker Depression (Chronic) Diverticulosis of colon Elevated blood pressure reading with diagnosis of hypertension Elevated blood pressure reading without diagnosis of hypertension Herpes simplex Hypertriglyceridemia Irritable bowel syndrome (Chronic) Mineral deficiency Nausea Neck pain Osteoarthritis (Chronic) Osteoporosis (Chronic) Osteoporosis with fracture Postmenopausal osteoporosis Rhinorrhea Solitary pulmonary nodule Symptoms of upper respiratory infection (URI) Tobacco use (Chronic) Vitamin D deficiency (Chronic) Weight loss Surgical History H/O: hysterectomy History of appendectomy (Resolved) History of cholecystectomy (Resolved 11/20/18) History of colonoscopy Tubular adenoma in cecum. Hyperplastic polyp in rectum. F/U 5 years. History of esophagogastroduodenoscopy (EGD) (Resolved 11/20/18) No significant path on duodenal bx. Gastric antral mucosa with changes consistent with mild reactive grastropathy. Negative for H. pylori. History of lumpectomy (Resolved) History of partial nephrectomy (Resolved) No pathology reports in [employer]. History of tonsillectomy and adenoidectomy (Resolved) Family History (Updated 03/26/20 @ 10:43 by Lissa Sena) Mother Arthritis Breast cancer Father Heart disease Hypertension Parkinson disease Uncle Colon cancer Grandfather Colon cancer Grandmother Ovarian cancer Brother Diabetes Denies family history of Prostate cancer Myocardial infarction Lung cancer Stroke Social History (Reviewed 03/28/20 @ 11:32 by Barbara Jimenez Preferred Language: Azeri marital status: Current Living Situation: Spouse current occupational status: retired Feels Safe at Home: Yes Smoking Status: Current every day smoker Tobacco Type: cigarettes ; packs per day: 0.25 ; Second Hand Exposure: No ; Hx Alcohol Use: Yes Alcohol type: wine Alcohol Intake Frequency: Weekly Alcohol Intake Frequency Comment: 4 times per week Hx Substance Use: Yes (zolpidem) substance use type: prescription drug Childhood Exposure to Second-Hand Smoke: No caffeine: Yes Dental Care, Regularly: Yes Physical Activity Frequency: 3-4 Times per Week Seatbelt Use: always Sunscreen Use: No Review of Systems Review of Systems: The patient denies chest pain, palpitations, shortness of breath, dyspnea on exertion, cough, lower extremity swelling, sore throat, chills, sweats, weight change, fatigue, nausea, vomiting, diarrhea , constipation, blood in urine or stool, dysuria, urinary frequency or urgency, lightheadedness, dizziness, headache, memory loss, loss of consciousness, rash, abnormal bruising or bleeding, imbalance, focal or generalized weakness, numbness or tingling in arms or legs, generalized arthralgias or myalgias, back or neck pain, or night sweats. The review of systems is otherwise negative other than for that already noted above, and at least 10 systems have been reviewed. Physical Exam Physical Exam: The patient is awake, alert and oriented 3, well developed and well nourished, normocephalic and atraumatic, lying in bed and in no acute distress. HEENT--PERRL, EOMI, mucous membranes and oropharynx dry. Neck--supple. No JVD. No bruits. Thyroid normal, trachea midline, no adenopathy. Heart--normal S1 and S2. No murmurs, rubs or gallops. Lungs--clear bilaterally, no respiratory distress, no accessory muscle use. Abdomen--normal bowel sounds and soft. Nontender Status post morphine IV in ED. mildly tympanitic. Extremities--no cyanosis or clubbing. No edema. Dermatologic--normal skin turgor, normal color, no abnormal lymph nodes, no rash. Neurologic--cranial nerves II through XII grossly intact. Rheumatologic--normal range of motion. Psychiatric--normal affect. Results & Data Results & Data ([facility]) Vital Signs (Past 12 Hours) Vital Signs Temp Pulse Pulse Resp BP BP Pulse Ox 03/28/20 13:08 89 19 180/94 H 93 03/28/20 12:38 88 19 190/100 H 95 03/28/20 12:00 67 12 95 03/28/20 11:52 70 12 94 03/28/20 11:42 69 15 175/81 H 93 03/28/20 10:42 99.0 F 80 18 169/90 H 96 Laboratory Results Laboratory Results WBC 9.71 K/uL (4.8-10.8) 03/28/20 11:40 RBC 5.65 M/uL (4.2-5.4) H 03/28/20 11:40 Hgb 17.3 g/dL (12.0-16.0) H 03/28/20 11:40 Hct 49.2 % (37-47) H 03/28/20 11:40 MCV 87.1 fL (80-100) 03/28/20 11:40 MCH 30.6 pg (25-34) 03/28/20 11:40 MCHC 35.2 g/dL (32-36) 03/28/20 11:40 RDW Std Deviation 39.1 fL (36.4-46.3) 03/28/20 11:40 RDW Coeff of Umm 12.2 % (11.5-14.5) 03/28/20 11:40 Plt Count 177 K/uL (130-400) 03/28/20 11:40 MPV 10.9 fL (7.4-10.4) H 03/28/20 11:40 Immature Gran % (Auto) 0.4 % 03/28/20 11:40 Neut % (Auto) 80.8 % 03/28/20 11:40 Lymph % (Auto) 13.5 % 03/28/20 11:40 [place] % (Auto) 4.9 % 03/28/20 11:40 Eos % (Auto) 0.3 % 03/28/20 11:40 Baso % (Auto) 0.1 % 03/28/20 11:40 Neut # (Auto) 7.84 K/uL (1.4-6.5) H 03/28/20 11:40 Lymph # (Auto) 1.31 K/uL (1.2-3.4) 03/28/20 11:40 [place] # (Auto) 0.48 K/uL (0.11-0.59) 03/28/20 11:40 Eos # (Auto) 0.03 K/uL (0-0.5) 03/28/20 11:40 Baso # (Auto) 0.01 K/uL (0-0.2) 03/28/20 11:40 Immature Gran # (Auto) 0.04 K/uL (0.00-0.02) H 03/28/20 11:40 Sodium 138 mmol/L (136-145) 03/28/20 11:40 Potassium 4.2 mmol/L (3.5-5.1) 03/28/20 11:40 Chloride 108 mmol/L (98-107) H 03/28/20 11:40 Carbon Dioxide 26 mmol/L (21-32) 03/28/20 11:40 Anion Gap 4.0 (3-11) 03/28/20 11:40 BUN 15 mg/dl (7-18) 03/28/20 11:40 Creatinine 0.78 mg/dl (0.6-1.2) 03/28/20 11:40 Est Cr Clr Drug Dosing 54.7 ml/min 03/28/20 11:40 Est GFR ( Amer) 88.6 03/28/20 11:40 Est GFR (Non-Af Amer) 76.5 03/28/20 11:40 BUN/Creatinine Ratio 19.4 (10-20) 03/28/20 11:40 Glucose 105 mg/dl (70-99) H 03/28/20 11:40 Calcium 9.5 mg/dl (8.5-10.1) 03/28/20 11:40 Total Bilirubin 0.8 mg/dl (0.2-1) 03/28/20 11:40 AST 20 U/L (15-37) 03/28/20 11:40 ALT 28 U/L (12-78) 03/28/20 11:40 Alkaline Phosphatase 83 U/L (45-117) 03/28/20 11:40 Total Protein 7.7 gm/dl (6.4-8.2) 03/28/20 11:40 Albumin 4.1 gm/dl (3.4-5.0) 03/28/20 11:40 Globulin 3.6 gm/dl (2.5-4.0) 03/28/20 11:40 Albumin/Globulin Ratio 1.1 (0.9-2) 03/28/20 11:40 Urine Color Dark Yellow 03/28/20 11:40 Urine Appearance Clear (Clear) 03/28/20 11:40 Urine pH 5.0 (4.5-7.5) 03/28/20 11:40 Ur Specific [place] 1.025 (1.000-1.030) 03/28/20 11:40 Urine Protein Trace (Negative) H 03/28/20 11:40 Urine Glucose (UA) Negative (Negative) 03/28/20 11:40 Urine Ketones Trace (Negative) H 03/28/20 11:40 Urine Blood Negative (Negative) 03/28/20 11:40 Urine Nitrite Negative (Negative) 03/28/20 11:40 Urine Bilirubin Negative (Negative) 03/28/20 11:40 Urine Urobilinogen Negative (Negative) 03/28/20 11:40 Ur Leukocyte Esterase Trace (Negative) H 03/28/20 11:40 Urine WBC (Auto) 1-5 /hpf (0-5) 03/28/20 11:40 Urine RBC (Auto) 5-10 /hpf (0-4) H 03/28/20 11:40 U Hyaline Cast (Auto) 5-10 /lpf (0-5) H 03/28/20 11:40 U Epithel Cells (Auto) >30 /lpf (0-5) H 03/28/20 11:40 Urine Bacteria (Auto) Negative (Negative) 03/28/20 11:40 Diagnostic Findings [place], [place] [phone] CT Scan Report Patient: KACY MAC Date: 03/28/20 MR#: [id number]: [address] Acct ID:[id number]: Date: [address] Zip: [place] [address] Age: 70Location: ED Sex: F Room/Bed: Att Phy:Diagnosis: DIVERTICULITIS CONFIRMED LAST WEEK - SWOLLEN Laura Phy: Zach Thomas Date: 03/28/20 [facility] Phy:Interpreting Phy: Tawanda Weldon MD Admit Phy: Ordering Phy: Barbara Oviedo PA cc: ~ CT SCAN OF THE ABDOMEN AND PELVIS WITH IV CONTRAST CLINICAL HISTORY: Generalized abdominal pain. Diverticulitis. COMPARISON STUDY: Abdominal CT dated 03/19/2020. TECHNIQUE: Following the IV administration of 94 cc of Optiray 320, CT scan of the abdomen and pelvis is performed from the lung bases to the proximal femora. Images are reviewed in the axial, sagittal, and coronal planes. IV contrast was administered without complication. A dose lowering technique was utilized adhering to the principles of ALARA. CT DOSE: 275.06 mGy.cm FINDINGS: Lung bases: The heart is normal in size and without pericardial effusion. 2 pleural-based pulmonary nodules at the left lung base measuring up to 4 mm seen on images #52 and #59. A 5 mm pleural-based nodule in the left lower lobe is seen on image #5. These are unchanged from prior studies and of doubtful significance. The lung bases are otherwise clear. Liver: The contrast-enhanced liver is normal in size, contour, and attenuation. There is mild to moderate intrahepatic biliary ductal dilatation. The hepatic veins and portal veins are patent. Gallbladder: Surgically absent noting clips in the gallbladder fossa. Spleen: Normal in size and attenuation. Pancreas: Unremarkable. Adrenal glands: Unremarkable. Kidneys: The contrast enhanced kidneys are normal in size and without hydronephrosis. The kidneys enhance symmetrically. Scattered subcentimeter cortical hypodensities likely represent cysts but are too small for definitive characterization. Abdominal vasculature: The abdominal aorta is normal in course and caliber noting mild atherosclerotic calcification. Bowel: There is mild to moderate colonic diverticulosis. Findings of diverticulitis involving the mid sigmoid colon have significantly improved as compared to 03/19/2020. There is wall thickening with pericolonic infiltration and fluid seen involving the distal descending/proximal sigmoid colon which is new from previous and consistent with a second focus of diverticulitis. No organized fluid collection is seen to indicate abscess. No bowel obstruction is seen. The appendix is not identified and reported surgically absent. Peritoneum: There is no intraperitoneal free air or abdominal ascites. Lymphadenopathy: None. Pelvic viscera: The bladder is normal as visualized. The uterus is surgically absent. No adnexal lesion is seen. Numerous phleboliths are noted in the pelvis. Skeletal structures: The skeletal structures are osteopenic. Mild lumbosacral spondylosis is observed. No lytic or blastic lesions are seen. IMPRESSION: 1. There is moderate colonic diverticulosis. 2. Findings of acute diverticulitis involving the mid sigmoid colon seen on 03/19/2020 have almost completely resolved. 3. Findings of acute diverticulitis involving the distal descending/proximal sigmoid colon are new from 03/19/2020. 4. No intraperitoneal free air is seen and there is no organized fluid collection to suggest abscess. 5. Additional findings as above. ACT 112: Negative or not required by law. Electronically signed by: Tawanda Weldon M.D. 03/28/2020 12:40 PM Dictated: 03/28/20 1231 Transcribed: 03/28/20 1231 Code Status & VTE Plan Code Status Full code VTE Prophylaxis Plan VTE Prophylaxis will be ordered: Yes PG Care Time/CCT Total # of Minutes Spent Total Time Spent with Patient: Total time spent is greater than 50% in coordination of care (as documented) at patient's floor/unit and/or counseling patient: Coding Level of Care Code 31162 Initial Inpt Care Lvl 2 Diagnoses Acute diverticulitis K57.92 Chronic reflux esophagitis K21.0 Depression F32.9
[2020-03-28] MEDS ORDERED: ONDANSETRON INJ 2 MG/ML 2 ML VIAL IV PRN (15:06)
[2020-03-28] MEDS ORDERED: ACETAMINOPHEN 325 MG TAB PO PRN (15:06)
[2020-03-28] MEDS: MoRPHine SULFATE 2 MG/ML CARP IV PRN ×2 (15:46→18:45)
[2020-03-28] MEDS: NSS + 20MEQ KCL 20 MEQ/1,000 ML BAG IV SCH (15:47)
[2020-03-28] MEDS: FAMOTIDINE 20 MG in SYRINGE 3 ML IV SCH ×2 (15:47→21:03)
[2020-03-28] MEDS ORDERED: HYDROmorphone INJ 1 MG/ML SYRINGE IV STA (20:44)
[2020-03-28] MEDS ORDERED: ZOLPIDEM TARTRATE 5 MG TAB PO SCH (21:00)
[2020-03-28] MEDS ORDERED: Nursing to Pharmacy Communication SCH (21:15)
[2020-03-28] MEDS: metroNIDAZOLE 500 MG/100 ML BAG IV SCH (21:51)
[2020-03-29] MEDS: ZOLPIDEM TARTRATE 5 MG TAB PO SCH ×2 (00:34→22:34)
[2020-03-29] MEDS: NSS + 20MEQ KCL 20 MEQ/1,000 ML BAG IV SCH ×3 (01:01→22:35)
[2020-03-29] MEDS: metroNIDAZOLE 500 MG/100 ML BAG IV SCH ×3 (04:50→21:22)
[2020-03-29 05:38] LABS: Basophils # (auto) 0.01 K/uL (0-0.2); Basophils % (auto) 0.2 %; Eosinophils # (auto) 0.08 K/uL (0-0.5); Eosinophils % (auto) 1.3 %; Hematocrit (blood only) 44.6 % (37-47); Hemoglobin 14.7 g/dL (12.0-16.0); Immature Granulocytes # (auto) 0.02 K/uL (0.00-0.02); Immature Granulocytes % (auto) 0.3 %; Lymphocytes # (auto) 1.09 K/uL (1.2-3.4); Lymphocytes % (auto) 18.1 %; Mean Platelet Volume 11.2 fL (7.4-10.4); Neutrophils # (auto) 4.51 K/uL (1.4-6.5); Neutrophils % (auto) 75.1 %; Platelet Count 148 K/uL (130-400); RDW Coefficient of Variation 12.6 % (11.5-14.5); RDW Standard Deviation 41.9 fL (36.4-46.3); White Blood Count 6.01 K/uL (4.8-10.8)
[2020-03-29 06:22] LABS: Albumin Globulin Ratio 0.9 (0.9-2); BUN Creatinine Ratio 14.7 (10-20); Bilirubin,Total 0.6 mg/dl (0.2-1); Calcium 7.8 mg/dl (8.5-10.1); Creatinine Clr Calc Pharmacy 68.8 ml/min; Est GFR (African American) 105.1; Est GFR (Non-African American) 90.7; Globulin 3.2 gm/dl (2.5-4.0); Magnesium 1.6 mg/dl (1.8-2.4); Potassium 3.8 mmol/L (3.5-5.1); Total Protein 6.2 gm/dl (6.4-8.2)
[2020-03-29] MEDS: FAMOTIDINE 20 MG in SYRINGE 3 ML IV SCH ×2 (08:40→21:21)
[2020-03-29] MEDS ORDERED: MAGNESIUM SULFATE / D5W 1 GM/100 ML BAG IV ONE (09:00)
[2020-03-29] MEDS: HYDROmorphone INJ 0.5 MG/0.5 ML SYR IV PRN ×3 (09:02→21:22)
--- NOTE | 2020-03-29 12:20 | Hospitalist Progress Note ---
Date of Service March 29, 2020 Assessment & Plan (1) Acute diverticulitis: Acute diverticulitis- CT scan on admission reveals an almost completely resolved mid sigmoid diverticulitis, but does reveal a new area of distal descending and proximal sigmoid diverticulitis Failure of outpatient treatment with Augmentin. Continue ceftriaxone 2 g IV daily and Flagyl 500 mg IV every 8 hours begun in the ED Will advance to clears and see how patient tolerates Zofran 4 mg IV every 6 hours as needed Acetaminophen 650 mg p.o. every 6 hours PRN mild pain or temperature Change morphine to 0.5 mg dilaudid as morphine was not helping (2) Chronic reflux esophagitis: Hold oral pantoprazole. Famotidine 20 mg IV every 12 hours (3) Depression: resume sertraline (4) DVT prophylaxis: SCDs Admission and Anticipated Discharge Date Admission Date: March 28, 2020 Supervising Physician Co-Signing Physician Notes case d/w S Martha HUDSON. seems somewhat odd to have one segment of diverticulitis treated/improve radiographically but then another area worsen at the same time- GI consult for input and/or ?colo. otherwise as above Subjective Ms. Macario is having pain in her abdomen which is relieved with pain medication. She is passing gas. Last BM yesterday, no melena or blood. ROS Constitutional: no chills, aches, sweats or fever Respiratory: no sob,cough, sputum, or wheezing Cardiac: no chest pain, palpitations, edema, orthopnea or lightheadedness GI: no abdominal pain, nausea, vomiting, diarrhea or constipation : no dysuria or hesitancy Extremities: no joint pain or weakness Skin: no rash All other systems reviewed and negative Physical Exam Physical Exam: General: no distress Eyes: normal inspection, PERLL Respiratory: chest non tender, clear to auscultation, normal breath sounds, no respiratory distress, no accessory muscle use Cardiac: regular rate and rhythm, no rub or gallop, no murmur, no edema, no jvd GI/: active bowel sounds, no abd pain or tenderness, soft, non distended Extremities: normal range of motion, normal strength, non tender Neuro/Psych: alert and oriented x 3, normal mood and affect Skin: normal color, dry Results & Data Results & Data ([facility]) Vital Signs (Past 12 Hours) Vital Signs Temp Pulse Resp BP Pulse Ox 07/12/20 07:50 36.6 C 53 L 17 153/74 H 92 03/29/20 04:56 95 PG Care Time/CCT Total # of Minutes Spent Total Time Spent with Patient: Total time spent is greater than 50% in coordi nation of care (as documented) at patient's floor/unit and/or counseling patient: Coding Level of Care Code 24043 Subseq Hosp Care Lvl 2 Diagnoses Acute diverticulitis K57.92 Chronic reflux esophagitis K21.0 Depression F32.9 DVT prophylaxis Z29.9
[2020-03-29] MEDS: cefTRIAXone SODIUM 2,000 MG in DEXTROSE 5% 50 ML IV SCH (13:16)
[2020-03-29] MEDS ORDERED: ACETAMINOPHEN 500 MG TAB PO SCH (17:00)
[2020-03-29] MEDS ORDERED: HYDROmorphone INJ 0.5 MG/0.5 ML SYR IV PRN (20:30)
[2020-03-30] MEDS: metroNIDAZOLE 500 MG/100 ML BAG IV SCH ×3 (04:47→21:04)
[2020-03-30 05:17] LABS: Basophils # (auto) 0.01 K/uL (0-0.2); Basophils % (auto) 0.2 %; Eosinophils # (auto) 0.08 K/uL (0-0.5); Eosinophils % (auto) 1.4 %; Hematocrit (blood only) 44.2 % (37-47); Hemoglobin 14.7 g/dL (12.0-16.0); Immature Granulocytes # (auto) 0.02 K/uL (0.00-0.02); Immature Granulocytes % (auto) 0.4 %; Lymphocytes # (auto) 1.24 K/uL (1.2-3.4); Lymphocytes % (auto) 22.3 %; Mean Corpuscular Hemoglobin 29.9 pg (25-34); Mean Corpuscular Hgb Conc 33.3 g/dL (32-36); Mean Corpuscular Volume 89.8 fL (80-100); Mean Platelet Volume 11.1 fL (7.4-10.4); Monocytes # (auto) 0.32 K/uL (0.11-0.59); Monocytes % (auto) 5.7 %; Platelet Count 155 K/uL (130-400); RDW Coefficient of Variation 12.3 % (11.5-14.5); Red Blood Count 4.92 M/uL (4.2-5.4); White Blood Count 5.57 K/uL (4.8-10.8)
[2020-03-30 05:51] LABS: Albumin Globulin Ratio 0.9 (0.9-2); BUN Creatinine Ratio 11.3 (10-20); Bilirubin,Total 0.5 mg/dl (0.2-1); Calcium 7.8 mg/dl (8.5-10.1); Creatinine Clr Calc Pharmacy 80.5 ml/min; Est GFR (African American) 110.7; Est GFR (Non-African American) 95.5; Globulin 3.4 gm/dl (2.5-4.0); Magnesium 1.9 mg/dl (1.8-2.4); Potassium 3.7 mmol/L (3.5-5.1); Total Protein 6.4 gm/dl (6.4-8.2)
[2020-03-30] MEDS ORDERED: HydrALAZINE HCL 20 MG/ML VIAL IV PRN (08:32)
--- NOTE | 2020-03-30 08:36 | Hospitalist Progress Note ---
Date of Service March 30, 2020 Assessment & Plan (1) Acute diverticulitis: Acute diverticulitis-Failure of outpatient treatment with Augmentin. Due to persistent discomfort a repeat CAT scan was performed 03/30/2020 IMPRESSION: 1. Interval development of small bilateral pleural effusions 2. No evidence of bowel obstruction. No evidence of free air 3. Improving diverticulitis at the descending sigmoid junction. No evidence of abscess. 4. Nonspecific gastric antral wall thickening Continue ceftriaxone 2 g IV daily and Flagyl 500 mg IV every 8 hours begun in the ED Will advance diet to regular (2) Chronic reflux esophagitis: Hold oral pantoprazole. Famotidine 20 mg IV every 12 hours changed back once patient taking p.o. reliably (3) Depression: resume sertraline (4) DVT prophylaxis: SCDs (5) Elevated blood pressure reading with diagnosis of hypertension: pt is almost 5L + from hydration , will stop hydration, add prn hydralazine and IV lasix x 1 dose Admission and Anticipated Discharge Date Admission Date: March 28, 2020 Subjective Patient with persistent abdominal pain and marked anxiety about her blood pressure. She denies any chest pain pressure shortness of breath confusion headache double vision or blurry vision. She is agreeable to repeating CT scan to evaluate her diverticulitis I did educate her regarding hypertension and its benefits of treatment and also benefits of being patient when instituting medications for long-term Review of Systems Review of Systems: Mild distress and anxiety no headache, blurry or double vision no speech or swallowing issues no chest pain, pressure or palpitations no shortness of breath, cough or wheezes Left lower quadrant crampy abdominal pain, no nausea or vomiting, having some mild diarrhea no dysuria, hematuria or frequency no focal joint pain or swelling no back pain, CVA tenderness or radicular pain no bruising, bleeding or rashes no focal signs of weakness or numbness or altered sensation no complaints or anxiety or depression. Physical Exam Physical Exam: The patient appeared well nourished and normally developed. Vital signs as documented. Head exam is normocephalic atraumatic no scleral icterus Neck is without JVD, thyromegaly, or carotid bruits. Lungs are clear to auscultation, no focal loss of breath sounds Cardiac exam, Rhythm is regular.. No murmurs, rubs or gallops. Abdominal exam reveals normal bowel sounds, soft, no bruits or pulsations minor tenderness left lower quadrant worse with deep palpation Extremities are nonedematous and both pedal pulses are normal. Neurologic exam is alert and oriented, no focal loss of strength or sensation Skin is without bruises or rashes Psychologically is without concerns for anxiety or depression Results & Data Results & Data ([facility]) Vital Signs (Past 12 Hours) Vital Signs Temp Pulse Resp BP BP Pulse Ox 03/30/20 08:30 59 L 209/101 H 03/30/20 07:59 98.2 F 61 16 201/98 H 96 03/30/20 00:12 56 L 179/88 H 03/29/20 23:28 98.2 F 61 16 186/93 H 94 PG Care Time/CCT Total # of Minutes Spent Total Time Spent with Patient: Total time spent is greater than 50% in coordination of care (as documented) at patient's floor/unit and/or counseling patient: Coding Level of Care Code 05148 Subseq Hosp Care Lvl 3 Diagnoses Acute diverticulitis K57.92 Chronic reflux esophagitis K21.0 Depression F32.9 DVT prophylaxis Z29.9 Elevated blood pressure reading with diagnosis of hypertension I10
[2020-03-30] MEDS ORDERED: FUROSEMIDE 20 MG in SYRINGE 0 ML IV ONE (09:00)
[2020-03-30] MEDS: SERTRALINE HCL 100 MG TABLET PO SCH (09:24)
[2020-03-30] MEDS: FAMOTIDINE 20 MG in SYRINGE 3 ML IV SCH ×2 (09:24→21:04)
[2020-03-30] MEDS: NSS + 20MEQ KCL 20 MEQ/1,000 ML BAG IV SCH (09:57)
--- NOTE | 2020-03-30 09:58 | Gastrointestinal Consultation ---
Date of Consultation March 30, 2020 Assessment & Plan (1) Acute diverticulitis: 70 year old female admitted w/ failed OP therapy of divertiuclitis, was started on Augmentin for mid sigmoid colon seen on 03/19/2020 have almost completely resolved however, new findings of acute diverticulitis involving the distal descending/proximal sigmoid colon are new from 03/19/2020. No intraperitoneal free air is seen and there is no organized fluid collection to suggest abscess. Check stool culture and c.diff Clear liquid diet as tolerated Low residue when advance Bentyl PRN Analgesia PRN Antiemetics PRN Can continue ABX for now until stool studies return Thank you for allowing us to participate in the care of this patient. Please call with any acute changes, questions or concerns. Please see addendum below with additional recommendation from my supervising physician. Supervising Physician Co-Signing Physician Notes I saw and evaluated the patient. She had been seen in the emergency room about 1 week ago for evaluation of abdominal discomfort and thought to have diverticulitis. She was treated with an outpatient course of Augmentin but approximately 8 days into the course she began to develop worsening discomfort and diarrhea. Physical examination No obvious distress Left-sided tenderness to palpation but no rebound signs today Impression: Patient presented with abdominal discomfort and diarrhea. Initially I would wonder if the patient could have C. difficile infection as he had copious diarrhea after being on Augmentin for over a week. It appears that the C. difficile PCR was negative. Given this it appears the patient has refractory diverticulitis. I would recommend use of intravenous broad-spectrum antibiotic coverage and a general surgery consultation. Recommendations Continue with broad-spectrum antibiotic coverage Consider a general surgery consultation Bentyl 10 mg 3 times daily History of Present Illness Reason for Consultation: 70-year-old female with a past medical history including anorexia, sigmoid diverticulosis, solitary pulmonary nodule, chronic reflux esophagitis, depression, hypertriglyceridemia, irritable bowel syndrome, insomnia and vitamin D deficiency ADMITTED WITH failed OP management of diverticulitits. GI aske to evaluate. She was initially diagnosed with sigmoid diverticulitis on 03/19/2020, and was started on Augmentin at that time. She reports that she initially been improving, however, over the past few days her symptoms have worsened, and she now has developed a temperature and worsening left lower quadrant abdominal pain and new diarrhea. This AM suggest pain is improved but has had numerous bouts of loose, watery stools. Brown. No black or bloody. Nausea but not vomiting. CTAP There is moderate colonic diverticulosis. Findings of acute diverticulitis involving the mid sigmoid colon seen on 03/19/2020 have almost completely resolved.Findings of acute diverticulitis involving the distal descending/proximal sigmoid colon are new from 03/19/2020. No intraperitoneal free air is seen and there is no organized fluid collection to suggest abscess. EGD/Colon 11/2018 w/ Abdulsamad: gastritis, tics, hemorrhoids, polyps due for recall 2023 Requesting Physician: Ciro Attending Physician: Mandeep Cooper MD Allergies Allergy/AdvReac Type Severity Reaction Status Date / Time diazepam Allergy Severe LOW B/P; Verified 03/28/20 12:01 "IV VALIUM CAUSED ANAPHYLACTIC SHOCK" alendronate sodium AdvReac Verified 03/28/20 12:01 [From Fosamax] azithromycin [From Zithromax] AdvReac DIARRHEA Verified 03/28/20 12:01 Home Medications Home Medications Medication Instructions Recorded Confirmed Type Saccharomyces boulardii 250 mg 250 mg PO QAM cap 03/14/19 03/28/20 History capsule zolpidem 5 mg tablet 5 mg PO HS PRN #30 tab 03/05/20 03/28/20 Rx amoxicillin 875 mg-potassium 1 tab PO BID #20 tab 03/19/20 03/28/20 Rx clavulanate 125 mg tablet pantoprazole 40 mg PO QAM 03/28/20 03/28/20 History sertraline 100 mg PO QAM 03/28/20 03/28/20 History Patient History Medical History Abdominal pain (Resolved) Abnormal mammography s/p lumpectomy, s/p stereotactic biopsy 06/29/2017. Left Upper outer quadrant - Fibroadenomatoid change with associated microcalcification. Left 12 o'clock bx - Fibroadenomatoid change with associated microcalcification. Age related osteoporosis Anorexia Chronic reflux esophagitis (Chronic) Current smoker Depression (Chronic) Diverticulosis of colon Elevated blood pressure reading with diagnosis of hypertension Elevated blood pressure reading without diagnosis of hypertension Herpes simplex Hypertriglyceridemia Irritable bowel syndrome (Chronic) Mineral deficiency Nausea Neck pain Osteoarthritis (Chronic) Osteoporosis (Chronic) Osteoporosis with fracture Postmenopausal osteoporosis Rhinorrhea Solitary pulmonary nodule Symptoms of upper respiratory infection (URI) Tobacco use (Chronic) Vitamin D deficiency (Chronic) Weight loss Surgical History H/O: hysterectomy History of appendectomy (Resolved) History of cholecystectomy (Resolved 11/20/18) History of colonoscopy Tubular adenoma in cecum. Hyperplastic polyp in rectum. F/U 5 years. History of esophagogastroduodenoscopy (EGD) (Resolved 11/20/18) No significant path on duodenal bx. Gastric antral mucosa with changes consistent with mild reactive grastropathy. Negative for H. pylori. History of lumpectomy (Resolved) History of partial nephrectomy (Resolved) No pathology reports in [employer]. History of tonsillectomy and adenoidectomy (Resolved) Family History (Updated 03/26/20 @ 10:43 by Lissa Sena) Mother Arthritis Breast cancer Father Heart disease Hypertension Parkinson disease Uncle Colon cancer Grandfather Colon cancer Grandmother Ovarian cancer Brother Diabetes Denies family history of Prostate cancer Myocardial infarction Lung cancer Stroke Social History Preferred Language: Cymro Communication Ability: Effective Dirt Bike Racer Required: No Beliefs That Will Affect Care: None marital status: Current Living Situation: Spouse current occupational status: retired Feels Safe at Home: Yes Smoking Status: Current every day smoker Tobacco Type: cigarettes ; packs per day: 0.25 ; Cigarettes Per Day: 1 pack/4 days. ; Second Hand Exposure: No ; Hx Alcohol Use: Yes Alcohol type: wine Alcohol Intake Frequency: Weekly Alcohol Intake Frequency Comment: 4 times per week Hx Substance Use: No Childhood Exposure to Second-Hand Smoke: No caffeine: Yes Dental Care, Regularly: Yes Physical Activity Frequency: 3-4 Times per Week Seatbelt Use: always Sunscreen Use: No Review of Systems Constitutional: no fever, no chills and no fatigue Respiratory: no cough, no dyspnea and no pain with cough Cardiovascular: no chest pain, no radiating jaw, neck or arm pain, no dyspnea and no orthopnea Gastrointestinal: + abdominal pain, + nausea, + change in bowel habits and + diarrhea/loose stools; no blood in stools and no melena Physical Exam Constitutional: WD/WN, vitals as above no acute distress and not ill appearing Neck: trachea midline Respiratory: normal respiratory effort, lungs clear to auscultation Auscultation: no crackles Cardiovascular: RRR, no murmur, no edema Extremities: no pedal edema Gastrointestinal (Abdomen): Inspection/Auscultation: abdomen normal to inspection and normal bowel sounds; abdomen not distended Percussion/Palpation: + abdomen tender (LLQ) and abdomen soft; no guarding and abdomen not rigid Skin: no rashes, warm and dry Results & Data ([facility]) Vital Signs (Past 12 Hours) Vital Signs Temp Pulse Resp BP BP Pulse Ox 03/30/20 09:19 72 106/101 H 209/90 H 98 03/30/20 08:30 59 L 209/101 H 03/30/20 07:59 36.8 C 61 16 201/98 H 96 03/30/20 00:12 56 L 179/88 H 03/29/20 23:28 36.8 C 61 16 186/93 H 94 Laboratory Results 03/30/20 03/30/20 03/29/20 Range/Units 04:54 04:54 05:13 WBC 5.57 (4.8-10.8) K/uL RBC 4.92 (4.2-5.4) M/uL Hgb 14.7 (12.0-16.0) g/dL Hct 44.2 (37-47) % MCV 89.8 (80-100) fL MCH 29.9 (25-34) pg MCHC 33.3 (32-36) g/dL RDW Std Deviation 40.0 (36.4-46.3) fL RDW Coeff of Umm 12.3 (11.5-14.5) % Plt Count 155 (130-400) K/uL MPV 11.1 H (7.4-10.4) fL Immature Gran % (Auto) 0.4 % Neut % (Auto) 70.0 % Lymph % (Auto) 22.3 % [place] % (Auto) 5.7 % Eos % (Auto) 1.4 % Baso % (Auto) 0.2 % Neut # (Auto) 3.90 (1.4-6.5) K/uL Lymph # (Auto) 1.24 (1.2-3.4) K/uL [place] # (Auto) 0.32 (0.11-0.59) K/uL Eos # (Auto) 0.08 (0-0.5) K/uL Baso # (Auto) 0.01 (0-0.2) K/uL Immature Gran # (Auto) 0.02 (0.00-0.02) K/uL Sodium 143 (136-145) mmol/L Potassium 3.7 (3.5-5.1) mmol/L Chloride 113 H (98-107) mmol/L Carbon Dioxide 24 (21-32) mmol/L Anion Gap 6.0 (3-11) BUN 6 L (7-18) mg/dl Creatinine 0.53 L (0.6-1.2) mg/dl Est Cr Clr Drug Dosing 80.5 ml/min Est GFR ( Amer) 110.7 Est GFR (Non-Af Amer) 95.5 BUN/Creatinine Ratio 11.3 (10-20) Glucose 92 (70-99) mg/dl Calcium 7.8 L (8.5-10.1) mg/dl Magnesium 1.9 (1.8-2.4) mg/dl Total Bilirubin 0.5 (0.2-1) mg/dl AST 44 H (15-37) U/L ALT 84 H (12-78) U/L Alkaline Phosphatase 92 (45-117) U/L Total Protein 6.4 (6.4-8.2) gm/dl Albumin 3.0 L (3.4-5.0) gm/dl Globulin 3.4 (2.5-4.0) gm/dl Albumin/Globulin Ratio 0.9 (0.9-2) Hepatitis C Ab Screen Neg (Neg)
[2020-03-30] MEDS ORDERED: LORazepam 0.5 MG TAB PO PRN (10:42)
[2020-03-30] MEDS: cefTRIAXone SODIUM 2,000 MG in DEXTROSE 5% 50 ML IV SCH (12:24)
[2020-03-30] MEDS ORDERED: DICYCLOMINE HCL 10 MG CAP PO ONE (12:27)
[2020-03-30] MEDS ORDERED: IOVERSOL 100ml IV PRN (14:53)
--- NOTE | 2020-03-30 15:19 | CT Scan Report ---
CT abd pelvis oral and IV con CLINICAL HISTORY: Worsening abdominal pain. Acute diverticulitis. COMPARISON STUDY: 03/28/2020 TECHNIQUE: The patient was scanned following administration of dilute oral contrast, and in a dynamic helical fashion during intravenous administration of 93 cc of Optiray 320 A dose lowering technique was utilized adhering to the principles of ALARA. CT DOSE: 398.90 mGycm FINDINGS: Lower chest: There are dependent atelectatic changes. There are small bilateral pleural effusions. Liver: No focal hepatic masses are visualized. There is mild antral ductal prominence, likely seconda ry to a reservoir effect secondary to prior cholecystectomy. Gallbladder: Surgically Spleen: Normal in size and attenuation. There is a left upper quadrant splenule Pancreas: Unremarkable. Adrenal glands: Unremarkable. Kidneys: No solid renal masses are visualized. Subcentimeter renal hypodensities likely represent cys ts. Bowel: There are no transition zones indicate bowel obstruction. The appendix is surgically absent. T here is nonspecific gastric antral wall thickening. There is colonic diverticulosis. There is mild co lonic wall thickening and infiltration of the pericolonic fat at the descending sigmoid junction. The findings appear slightly improved when compared the prior study. There are no fluid collections to i ndicate an abscess. Or distal sigmoid wall thickening is felt to be secondary to peridiverticular mus cular hypertrophy. Peritoneum: There is no intraperitoneal free air or abdominal ascites. Vasculature: The abdominal aorta is normal in course and caliber. Adenopathy: None. Pelvic viscera: The uterus is surgically absent Skeletal structures: No destructive osseous lesions are seen. IMPRESSION: 1. Interval development of small bilateral pleural effusions 2. No evidence of bowel obstruction. No evidence of free air 3. Improving diverticulitis at the descending sigmoid junction. No evidence of abscess. 4. Nonspecific gastric antral wall thickening ACT 112: Negative or not required by law. Electronically signed by: Mandeep Ravi M.D. 03/30/2020 3:18 PM
[2020-03-30] MEDS ORDERED: cloNIDine HCL 0.1 MG TAB PO PRN (15:53)
[2020-03-30] MEDS: HYDROmorphone INJ 0.5 MG/0.5 ML SYR IV PRN ×2 (16:06→22:29)
[2020-03-31] MEDS: ZOLPIDEM TARTRATE 5 MG TAB PO SCH (01:37)
[2020-03-31] MEDS: metroNIDAZOLE 500 MG/100 ML BAG IV SCH ×2 (04:56→14:23)
[2020-03-31 05:03] LABS: Basophils # (auto) 0.01 K/uL (0-0.2); Basophils % (auto) 0.2 %; Eosinophils # (auto) 0.14 K/uL (0-0.5); Eosinophils % (auto) 2.1 %; Hematocrit (blood only) 44.4 % (37-47); Hemoglobin 15.1 g/dL (12.0-16.0); Immature Granulocytes # (auto) 0.03 K/uL (0.00-0.02); Immature Granulocytes % (auto) 0.5 %; Lymphocytes # (auto) 1.39 K/uL (1.2-3.4); Mean Corpuscular Hemoglobin 29.4 pg (25-34); Mean Corpuscular Volume 86.5 fL (80-100); Mean Platelet Volume 10.7 fL (7.4-10.4); Monocytes # (auto) 0.43 K/uL (0.11-0.59); Monocytes % (auto) 6.5 %; Neutrophils # (auto) 4.62 K/uL (1.4-6.5); Neutrophils % (auto) 69.7 %; Platelet Count 183 K/uL (130-400); RDW Coefficient of Variation 12.1 % (11.5-14.5); RDW Standard Deviation 38.7 fL (36.4-46.3); Red Blood Count 5.13 M/uL (4.2-5.4); White Blood Count 6.62 K/uL (4.8-10.8)
[2020-03-31 05:37] LABS: Albumin Level 3.3 gm/dl (3.4-5.0); BUN Creatinine Ratio 14.5 (10-20); Calcium 8.7 mg/dl (8.5-10.1); Creatinine Clr Calc Pharmacy 60.1 ml/min; Est GFR (African American) 99.3; Est GFR (Non-African American) 85.7; Potassium 3.4 mmol/L (3.5-5.1)
[2020-03-31 05:38] LABS: Bilirubin,Total 0.6 mg/dl (0.2-1); Globulin 3.3 gm/dl (2.5-4.0); Total Protein 6.6 gm/dl (6.4-8.2)
--- NOTE | 2020-03-31 08:23 | Gastroenterology Progress Note ---
Date of Service March 31, 2020 Assessment & Plan (1) Acute diverticulitis: 70 year old female admitted w/ failed OP therapy of diverticulitis, was started on Augmentin for mid sigmoid colon seen on 03/19/2020 have almost completely resolved however, new findings of acute diverticulitis involving the distal descending/proximal sigmoid colon are new from 03/19/2020. No intraperitoneal free air is seen and there is no organized fluid collection to suggest abscess. c.diff negative, repeat CTAPs shows improvement, starting to clinically feel better on IV ABX GI sign off No GI contraindication to low residue diet Bentyl PRN Analgesia PRN Antiemetics PRN Continue IV ABX Consider general surgery consultation Will sign off. Thank you for allowing us to participate in the care of this patient. Please call with any acute changes, questions or concerns. Please see addendum below with additional recommendation from my supervising physician. Admission and Anticipated Discharge Date Admission Date: March 28, 2020 Supervising Physician Co-Signing Physician Notes I saw and evaluated the patient. She does appear improved with an additional 24 hours of intravenous antibiotics. I wonder if the patient should continue antibiotic coverage for another 24 hours prior to discharge. As the patient did have a recent colonoscopy repeat examination is probably not needed at the present time. As an outpatient she should start a fiber supplement in the next 4 to 6 weeks and increase water intake. Please call with any additional questions or concerns Subjective Pt was seen and evaluated, chart reviewed Feeling better Pain is less severe but still present Less loose stools Cdiff negative Repeat CTAP shows improving diverticulitis Review of Systems Constitutional: no fever, no fatigue and no anorexia Respiratory: no cough, no dyspnea, no pain with cough and no sputum production Cardiovascular: no chest pain, no radiating jaw, neck or arm pain, no syncope, no calf pain and no claudication Gastrointestinal: + abdominal pain and + diarrhea/loose stools; no coffee ground emesis, no dysphagia, no change in bowel habits and no blood in stools Physical Exam Constitutional: WD/WN, vitals as above no acute distress and not ill appearing Neck: trachea midline Respiratory: normal respiratory effort, lungs clear to auscultation Auscultation: no crackles Cardiovascular: RRR, no murmur, no edema Extremities: no pedal edema Gastrointestinal (Abdomen): Inspection/Auscultation: abdomen normal to inspection and normal bowel sounds; abdomen not distended Percussion/Palpation: + abdomen tender (LLQ) and abdomen soft; no guarding and abdomen not rigid Skin: no rashes, warm and dry Results & Data ([facility]) Vital Signs (Past 12 Hours) Vital Signs Temp Pulse Resp BP Pulse Ox 03/31/20 07:09 36.7 C 62 16 170/82 H 95 03/30/20 23:09 36.7 C 54 L 16 161/81 H 94 03/30/20 22:00 36.6 C 55 L 16 164/95 H 97
[2020-03-31] MEDS: FAMOTIDINE 20 MG in SYRINGE 3 ML IV SCH (08:47)
[2020-03-31] MEDS: SERTRALINE HCL 100 MG TABLET PO SCH (08:47)
--- NOTE | 2020-03-31 13:37 | Discharge Summary ---
Date of Service March 31, 2020 Admission HPI Per Admitting Provider The patient is a 70-year-old female with a past medical history including anorexia, sigmoid diverticulosis, solitary pulmonary nodule, chronic reflux esophagitis, depression, hypertriglyceridemia, irritable bowel syndrome, insomnia and vitamin D deficiency. She was initially diagnosed with sigmoid diverticulitis on 03/19/2020, and was started on Augmentin at that time. She reports that she initially been improving, however, over the past few days her symptoms have worsened, and she now has developed a temperature and worsening left lower quadrant abdominal pain. She has been adhering to a full liquid diet, but last night did have a potato with skins. She did have a colonoscopy performed approximately 18 months ago, which did show diverticulosis. Principal Diagnosis acute diverticulitis` Hypertension Discharge Exam The patient appeared well Vital signs as documented. Lungs are clear to auscultation and appear unlabored Cardiac exam, Rhythm is regular.. No murmurs, rubs or gallops. Abdominal exam reveals normal bowel sounds, soft non tender, no masses Extremities are nonedematous and both pedal pulses are normal. Neurologic exam is alert and oriented, no focal loss of strength or sensation Skin is without bruises or rashes Psychologically is without concerns for anxiety or depression Discharge Data Allergies Allergy/AdvReac Type Severity Reaction Status Date / Time diazepam Allergy Severe LOW B/P; Verified 03/28/20 12:01 "IV VALIUM CAUSED ANAPHYLACTIC SHOCK" alendronate sodium AdvReac Verified 03/28/20 12:01 [From Fosamax] azithromycin [From Zithromax] AdvReac DIARRHEA Verified 03/28/20 12:01 Consultations 03/28/20 13:19 ED Decision to Admit Stat 03/28/20 15:06 Consult Case Management - Discharge Planning Routine 03/30/20 09:23 Consult Gastroenterology Routine Ordered Studies 03/28/20 11:24 CT abd pelvis IV con only Stat 03/30/20 10:42 CT abd pelvis oral and IV con Routine Hospital Course (1) Acute diverticulitis: Acute diverticulitis-Failure of outpatient treatment with Augmentin. Due to persistent discomfort a repeat CAT scan was performed 03/30/2020 IMPRESSION: 1. Interval development of small bilateral pleural effusions 2. No evidence of bowel obstruction. No evidence of free air 3. Improving diverticulitis at the descending sigmoid junction. No evidence of abscess. 4. Nonspecific gastric antral wall thickening Patient will be given cipro/flagyl for home for additional 10 days (2) Chronic reflux esophagitis: pantoprazole. (3) Depression: sertraline (4) Elevated blood pressure reading with diagnosis of hypertension: Patient agreed improvement of her blood pressure after she is reassured her diverticulitis was improving with repeat CAT scan. Patient was given 1 dose of clonidine with good results. I spent approximately 20 minutes on 03/30 and 10 minutes on 03/31 educating the patient about hypertension and how to treat it including dietary and lifestyle modifications. Patient was given handouts at the time of discharge for low-salt diet and hypertensive management. Patient was encouraged to follow-up with her primary care provider in 1 week after discharge to discuss her hypertension further Total Time Total Time Spent Total Time Spent (In Minutes): It required greater than 30 minutes to prepare this patient for discharge Discharge Plan Discharge Items Patient Disposition: Home - Self-Care Reason For Visit: ACUTE DIVERTICULITIS Discharge Diagnosis: 1)acute diverticulitis 2) hypertension Activity: Per Instructions section Activity Comment: gradually increase activity Non-emergency contact: Primary Care Provider Call non-emergency contact if: you have any medication questions and your symptoms worsen Follow-up/Referrals: Zach Thomas MD [Primary Care Provider] - 04/06/20 11:00 am Diet: Low Sodium (2gm) Addtl Attending Provider Instructions: Please follow up with your primary care provider to discuss your blood pressure please limit salt to 2000mg a day, limit caffiene and alcohol Pending Studies at Discharge: No Stand-Alone Forms: My [facility] [employer] Naked Song, Smoking Cessation Medications and DC Order Prescriptions: New ciprofloxacin HCl [Cipro] 500 mg tablet 500 mg PO BID Qty: 20 RF: 0 metronidazole [Flagyl] 500 mg tablet 500 mg PO TID 10 Days Qty: 30 RF: 0 Continued zolpidem 5 mg tablet 5 mg PO HS PRN (Reason: Sleep) Qty: 30 RF: 0 Saccharomyces boulardii 250 mg capsule 250 mg PO QAM RF: 0 sertraline 100 mg tablet 100 mg PO QAM RF: 0 pantoprazole 40 mg tablet,delayed release (DR/EC) 40 mg PO QAM RF: 0 Discontinued amoxicillin-pot clavulanate [Augmentin] 875-125 mg tablet 1 tab PO BID Qty: 20 RF: 0 Discharge Orders: Discharge Order (Routine); Ordered 03/31/20 Ordered By: Mandeep Dudley/Other Patient Handouts: Low-Salt Choices, Hypertension Dc Admission Data Admit Date/Time: 03/28/20 13:57 Attending Provider: Mandeep Cooper Admit Provider: Indio Vazquez Primary Care Provider: Zach Thomas Other Providers: Indio Vazquez ; Omayra Mojica Coding Level of Care Code D/C Day Management >30 mins Diagnoses Acute diverticulitis K57.92 Chronic reflux esophagitis K21.0 Depression F32.9 Elevated blood pressure reading with diagnosis of hypertension I10
[2020-03-31] MEDS: cefTRIAXone SODIUM 2,000 MG in DEXTROSE 5% 50 ML IV SCH (13:38)
[2020-03-31] MEDS ORDERED: FAMOTIDINE 20 MG TAB PO SCH (21:00)
[2020-03-31] MEDS ORDERED: POTASSIUM CHLORIDE 20 MEQ TABCR PO SCH (21:00)
== END 2020-03-31 16:13 | disposition home or self-care (01) | DRG 392 ==
LOC: ED 10:34 → SUATTDRO 13:57 → 3N 13:57 → 3E 03-30 22:09